=== PATIENT | female | born 1945 | race Caucasian/White ===

== ENCOUNTER 2018-06-21 12:09 | Emergency (ER) | payer OTHER, MEDICAID ==
[~2018-06-21] VITALS: Ht 154.9 cm; Wt 117.9 kg
[2018-06-21 12:22] VITALS: Ht 154.9 cm; Wt 117.9 kg
[2018-06-21 14:17] VITALS: BP 148/87
== END 2018-06-21 14:17 | disposition home or self-care (01) ==
LOC: ED 12:09
DX: S29.012A Strain of muscle and tendon of back wall of thorax, initial encounter (principal); Z88.0 Allergy status to penicillin; E11.9 Type 2 diabetes mellitus without complications; X58.XXXA Exposure to other specified factors, initial encounter; Y93.89 Activity, other specified; Y92.89 Other specified places as the place of occurrence of the external cause; Y99.8 Other external cause status
CPT/HCPCS: J1885

== ENCOUNTER 2019-01-20 11:41 | Emergency (ER) | payer OTHER, MEDICAID ==
[~2019-01-20] VITALS: Ht 162.6 cm; Wt 117.0 kg
[2019-01-20 12:00] VITALS: Ht 162.6 cm; Wt 117.0 kg
[2019-01-20 14:16] VITALS: BP 119/74
== END 2019-01-20 14:16 | disposition home or self-care (01) ==
LOC: ED 11:41
DX: K59.00 Constipation, unspecified (principal); J44.9 Chronic obstructive pulmonary disease, unspecified; E11.9 Type 2 diabetes mellitus without complications; Z90.89 Acquired absence of other organs; Z90.49 Acquired absence of other specified parts of digestive tract; Z98.890 Other specified postprocedural states; Z88.0 Allergy status to penicillin

== ENCOUNTER 2019-10-12 18:13 | Emergency (ER) | payer OTHER, MEDICAID ==
[~2019-10-12] VITALS: Ht 162.6 cm; Wt 112.5 kg
[2019-10-12 18:33] VITALS: Ht 162.6 cm; Wt 112.5 kg
[2019-10-12 20:56] VITALS: BP 166/72
== END 2019-10-12 21:00 | disposition home or self-care (01) ==
LOC: ED 18:13
DX: M54.32 Sciatica, left side (principal); J44.9 Chronic obstructive pulmonary disease, unspecified; E11.9 Type 2 diabetes mellitus without complications; Z88.0 Allergy status to penicillin
CPT/HCPCS: J3010

== ENCOUNTER 2019-11-17 10:54 | Emergency (ER) | payer OTHER, MEDICAID ==
[~2019-11-17] VITALS: Ht 165.1 cm; Wt 112.5 kg
[2019-11-17 11:03] VITALS: Ht 165.1 cm; Wt 112.5 kg
[2019-11-17 13:21] VITALS: BP 166/79
== END 2019-11-17 13:21 | disposition home or self-care (01) ==
LOC: ED 10:54
DX: M17.11 Unilateral primary osteoarthritis, right knee (principal); J44.9 Chronic obstructive pulmonary disease, unspecified; E11.9 Type 2 diabetes mellitus without complications; E78.00 Pure hypercholesterolemia, unspecified; Z88.0 Allergy status to penicillin
CPT/HCPCS: J1885